=== PATIENT | male | born 2005 | race Caucasian/White ===

== ENCOUNTER 2025-04-14 08:56 | Emergency (ER) | payer OTHER ==
[~2025-04-14] VITALS: Ht 182.9 cm; Wt 101.8 kg
[2025-04-14] MEDS: ACETAMINOPHEN 500 MG TAB PO ONE (11:31)
[2025-04-14] MEDS: KETOROLAC 30 MG/ML 1 ML VIAL IM ONE (11:31)
[2025-04-14] MEDS: LIDOCAINE 5% PATCH TD ONE (11:32)
[2025-04-14 12:13] VITALS: TEMP 97.7
[2025-04-14] MEDS ORDERED: METH-1165 PO (14:05)
[2025-04-14] MEDS ORDERED: MEDR4PAK PO (14:05)
[2025-04-14 14:13] VITALS: BP 137/81; O2SAT 99
== END 2025-04-14 14:14 | disposition home or self-care (01) ==
LOC: M ED 08:56
DX: S39.012A Strain of muscle, fascia and tendon of lower back, initial encounter (principal); X50.0XXA Overexertion from strenuous movement or load, initial encounter; Z79.899 Other long term (current) drug therapy; Y92.89 Other specified places as the place of occurrence of the external cause; Y93.89 Activity, other specified; Y99.1 Military activity
CPT/HCPCS: 72110; 96372; 99283; J1885